=== PATIENT | female | born 1965 | race Caucasian/White ===

== ENCOUNTER → 2017-06-26 19:03 | Outpatient (CLI) | payer BC, SELFPAY ==
[2017-07-03 13:46] LABS: HPV Reflexed? NOT INDICATED
== END ==
PROVIDERS: Visit Provider Obstetrics & Gynecology
DX: Z12.4 Encounter for screening for malignant neoplasm of cervix (principal)
CPT/HCPCS: 88175; G0145

== ENCOUNTER → 2017-07-24 12:29 | Outpatient (CLI) | payer BC, SELFPAY ==
--- NOTE | 2017-07-24 12:32 | BI_ITS ---
MAMMOGRAPHY - BILATERAL SCREENING REASON FOR EXAM: Female, 51 years old. Routine annual screening examination. PERTINENT HISTORY: Non-contributory. TECHNIQUE: Digital bilateral breast darrel (3D mammographic acquisition) in the CC and MLO projections. 2-D mediolateral oblique (MLO) and craniocaudad (CC) views of both breasts were obtained. CAD: Full Field Digital Mammography with Computer Added Detection was performed. COMPARISON: Comparison is made with prior study dated April 11, 2016. FINDINGS: Breast Composition: There are scattered areas of fibroglandular density. There are no dominant masses or suspicious calcifications. Stable small benign-appearing bilateral axillary lymph nodes. No other significant abnormalities are identified. There has been no significant change since the prior study. BI/SCREENING MAMM (CAD), BILAT IMPRESSION: Stable bilateral screening mammogram. Yearly follow-up mammogram recommended. (A) ASSESSMENT CATEGORY: BIRADS Category 1: Negative. A letter regarding these results will be sent to the patient by the facility within 30 days. Approximately 10% of breast cancers are not detected by mammography. A normal mammogram should not delay biopsy of a clinically suspicious abnormality. [id number] Electronically Signed: Henry Thakkar MD at 8:47 EDT Tel [phone], Service support ,
== END ==
PROVIDERS: Visit Provider Obstetrics & Gynecology
DX: Z12.31 Encounter for screening mammogram for malignant neoplasm of breast (principal)
CPT/HCPCS: 77063; 77067

== ENCOUNTER → 2018-01-16 12:00 | Outpatient (CLI) | payer BC, SELFPAY ==
[2018-01-16 13:51] LABS: Estradiol 71.3 pg/mL; Follicle Stimulating Hormone 19.9 mIU/mL; Progesterone Level 0.43 ng/mL (See Comment)
== END ==
PROVIDERS: Referring Provider Obstetrics & Gynecology; Visit Provider Obstetrics & Gynecology
DX: R93.89 Abnormal findings on diagnostic imaging of other specified body structures (principal)
CPT/HCPCS: 36415; 82670; 83001; 84144

== ENCOUNTER 2018-02-19 05:52 | Day surgery (SDC) | payer BC, SELFPAY ==
[2018-02-17 10:48] LABS: Hematocrit 42.2 % (37-47); Hemoglobin 13.7 g/dl (12.0-15.0); Mean Corp Hgb Conc 32.5 g/gl (32-36); Mean Corpuscular Volume 92.5 fL (81-99); Mean Platelet Vol. 10.4 fl (6.2-12.0); Platelet Count 269 K/mm3 (150-450); RBC Distribution Width CV 13.1 % (11.6-14.6); RBC Distribution Width SD 43.2 fl (35.1-43.9); Red Blood Count 4.56 M/mm3 (4.2-5.4)
[2018-02-17 10:51] LABS: Scan Indicated on CBC? Y/N NO
[2018-02-17 10:54] LABS: Partial Thromboplast Time 30.1 Seconds (24.1-36.2); Prothrombin Time (Protime)PT. 12.9 SECONDS (11.7-14.9)
[2018-02-19 06:13] LABS: Internal QC Validated? YES +Cl - CLEAR BKGD; Pregnancy, Urine Negative Negative
[2018-02-19 06:28] VITALS: BP 141/91; PULSE 100; RESP 16; TEMP 37; O2SAT 98; BMI 29.2
--- NOTE | 2018-02-19 07:30 | EMB_PTH ---
PATIENT: LEIDY OWENS [place] [facility] [place][id number] AGE/SX: 52/F ROOM: RE02/19/[address]: Dr. Meghann Johnston MD : 1965 BED: DIS: 02/19/2018 SPEC #: [id number] RECD: 02/19/18 08:42 STATUS: SOPHIA LAVON #: [id number] JESSICA: 02/19/18 07:[address]: Meghann Johnston DEPT: SURGICAL PATHOLOGY RECD BY: Felice Mathias ENTERED: 02/19/18 09:22 SP TYPE: ENDOM BX/C ALEXYS DR: Out of Town Doctor Tissues: Endometrium, NOS Procedures: Surgery Specimen Level IV HEADER OPERATION: Hysteroscopy, dilation and curettage, Mirena IUD placement PRE-OP DIAGNOSIS: Irregular bleeding, thickened endometrium TISSUE SUBMITTED: Endometrial curettings MICROSCOPIC DIAGNOSIS Endometrium, curettings: Strips of benign superficial endometrium. Rare strips of benign superficial endocervix. AM:paola 02/20/18 MICROSCOPIC DESCRIPTION Slides are reviewed. GROSS DESCRIPTION Received in fixative is one container labeled with the patient's name and designated endometrial curettings. The specimen consists of multiple fragments of hemorrhagic soft tissue mixed with mucoid tissue that in aggregate measure 3 x 2.5 x 0.2 cm. The entire specimen is submitted in one cassette. / SJ:paola 02/19/18 TC:5 CPT: 08215
--- NOTE | 2018-02-19 07:50 | PCM.OPRPT ---
Report of Operation Date of Procedure: 02/19/18 Pre-Operative Diagnosis: Thickened endometrium on ultrasound and irregular menstrual cycle Post-Operative Diagnosis: Same Surgery/Procedure Performed:: D&C, diagnostic hysteroscopy, Mirena IUD placement Description of Surgical Findings:: Uterus was sounded to approximately 9-1/2-10 cm centimeters in a retroflexed position. Uterus was fully mobile. Cervix appeared to be normal. Bilateral adnexa on pelvic exam under anesthesia were noted to be benign software test analyst: Vida Varghese Type of Anesthesia:: Local, MAC Anesthesiologist: Herminio Rodrigez Special Medications: Cefotetan hand 2 g IV preoperatively, lidocaine 10 cc placed directly to the cervix Specimen's removed: Endometrium Drains: None Estimated Blood Loss (mL): Minimal Fluids Replaced: Lactated ringer Description of Procedure: Patient presented to the operating suite and n.p.o. status. Patient had been previously counseled in the office setting in regards to IUD placement following tissue removal via D&C for ongoing care of the endometrial cavity and the uterus itself. Patient was placed on the operating room table and underwent a MAC anesthetic. Once found be adequate, the patient was placed in the dorsolithotomy position with the Jose stirrups. She was prepped and draped in the normal sterile fashion. Palm straight catheter was used to empty the bladder of all remaining urine. The patient had appropriate timeouts x2. The weighted speculum was then placed in the vaginal vault area and the anterior lip of the cervix was grasped and elevated with a single-tooth tenaculum. The uterus was sounded to 9-1/2-10 cm in a retroflexed position. The cervix was then injected with 10 cc of 1% lidocaine to all 4 quadrants. The cervical os was easily dilated to accommodate a 5 mm hysteroscope into the endometrial cavity. Fluency in various areas of thickening of the endometrium were noted. The hysteroscope was removed followed by sharp curettage and collection of the endometrium. The endometrium was a sent away for pathological evaluation. At this point in time that the uterus was once again sounded to that 9-1/2-10 cm. The IUD Mirena was assembled for the length of that uterus and it was placed under the usual fashion. The string was trimmed to 2 cm. Hemostasis was noted. All instruments were removed from the vagina. Sponge and estimate counts correct x2. Patient awakened in stable condition to be taken recovery room for discharge home later today. Grafts/Implants Used: None - Complications None - Admit VTE Documentation VTE Present on Admission: No VTE Mechan Device Prophylaxis: SCD's VTE Pharm Prophylaxis ordered?: No Reason prophylaxis not ordered:: Procedure Not Indicated
--- NOTE | 2018-02-19 07:55 | OP.PCM_ITS ---
Report of Operation Date of Procedure: 02/19/18 Pre-Operative Diagnosis: Thickened endometrium on ultrasound and irregular menstrual cycle Post-Operative Diagnosis: Same Surgery/Procedure Performed:: D&C, diagnostic hysteroscopy, Mirena IUD placement Description of Surgical Findings:: Uterus was sounded to approximately 9-1/2-10 cm centimeters in a retroflexed position. Uterus was fully mobile. Cervix appeared to be normal. Bilateral adnexa on pelvic exam under anesthesia were noted to be benign supervisor display fabrication: Vida Varghese Type of Anesthesia:: Local, MAC Anesthesiologist: Herminio Rodrigez Special Medications: Cefotetan hand 2 g IV preoperatively, lidocaine 10 cc placed directly to the cervix Specimen's removed: Endometrium Drains: None Estimated Blood Loss (mL): Minimal Fluids Replaced: Lactated ringer Description of Procedure: Patient presented to the operating suite and n.p.o. status. Patient had been previously counseled in the office setting in regards to IUD placement following tissue removal via D&C for ongoing care of the endometrial cavity and the uterus itself. Patient was placed on the operating room table and underwent a MAC anesthetic. Once found be adequate, the patient was placed in the dorsolithotomy position with the Jose stirrups. She was prepped and draped in the normal sterile fashion. Palm straight catheter was used to empty the bladder of all remaining urine. The patient had appropriate timeouts x2. The weighted speculum was then placed in the vaginal vault area and the anterior lip of the cervix was grasped and elevated with a single-tooth tenaculum. The uteru s was sounded to 9-1/2-10 cm in a retroflexed position. The cervix was then injected with 10 cc of 1% lidocaine to all 4 quadrants. The cervical os was easily dilated to accommodate a 5 mm hysteroscope into the endometrial cavity. Fluency in various areas of thickening of the endometrium were noted. The hysteroscope was removed followed by sharp curettage and collection of the endometrium. The endometrium was a sent away for pathological evaluation. At this point in time that the uterus was once again sounded to that 9-1/2-10 cm. The IUD Mirena was assembled for the length of that uterus and it was placed under the usual fashion. The string was trimmed to 2 cm. Hemostasis was noted. All instruments were removed from the vagina. Sponge and estimate counts correct x2. Patient awakened in stable condition to be taken recovery room for discharge home later today. Grafts/Implants Used: None - Complications None - Admit VTE Documentation VTE Present on Admission: No VTE Mechan Device Prophylaxis: SCD's VTE Pharm Prophylaxis ordered?: No Reason prophylaxis not ordered:: Procedure Not Indicated
--- NOTE | 2018-02-19 07:55 | PCM.DC.D&C ---
Discharge Diet: No Restrictions, - - increase water to a minimum of 120 ounces daily x 3 days Discharge Activity: Return to Normal Activity, May Shower, May Take a Tub Bath - in 2 weeks., - - recommend decrease ambulation for 24 hours with leg and foot pumping during this time to assure blood flow movement of the lower extremities May shower in (days): 0 - TODAY May resume sexual activity in: 2 weeks Weight Bearing Status: Full weight bearing Lifting Restrictions: none Call your doctor if your incision/area has: Sudden Increased Bleeding Call your doctor if you observe: Fever of 101 or Higher, Inability to urinate, Inability to have a bowel movement, Using more than one pad per hour Cleanse incision/area with: Soap & Water Allergies/Adverse Reactions: Allergies oxycodone [From Percocet] Adverse Reaction (Verified 02/12/18 13:12) Vomiting Medications to take at Discharge Calcium Carbonate [Calcium] 500 mg PO DAILY 02/12/18 Cholecalciferol (Vitamin D3) [Vitamin D3] 1 tab PO DAILY 02/12/18 Ibuprofen [Ibuprofen Ib] 200 mg PO PRN PRN 02/12/18 Progesterone,Micronized [Prometrium] 200 mg PO QHS 02/12/18 Primary Care Physician: [facility] ,Out of [Primary Care Provider] - Test Results: Test results from this visit will be discussed in further detail at your follow-up appointment, if applicable. Please Follow Up With: Meghann Johnston MD When: 1-2 weeks postop
--- NOTE | 2018-02-19 07:58 | DCINST_ITS ---
Discharge Diet: No Restrictions, - - increase water to a minimum of 120 ounces daily x 3 days Discharge Activity: Return to Normal Activity, May Shower, May Take a Tub Bath - in 2 weeks., - - recommend decrease ambulation for 24 hours with leg and foot pumping during this time to assure blood flow movement of the lower extremities May shower in (days): 0 - TODAY May resume sexual activity in: 2 weeks Weight Bearing Status: Full weight bearing Lifting Restrictions: none Call your doctor if your incision/area has: Sudden Increased Bleeding Call your doctor if you observe: Fever of 101 or Higher, Inability to urinate, Inability to have a bowel movement, Using more than one pad per hour Cleanse incision/area with: Soap & Water Allergies/Adverse Reactions: Allergies oxycodone [From Percocet] Adverse Reaction (Verified 02/12/18 13:12) Vomiting Medications to take at Discharge Calcium Carbonate [Calcium] 500 mg PO DAILY 02/12/18 Cholecalciferol (Vitamin D3) [Vitamin D3] 1 tab PO DAILY 02/12/18 Ibuprofen [Ibuprofen Ib] 200 mg PO PRN PRN 02/12/18 Progesterone,Micronized [Prometrium] 200 mg PO QHS 02/12/18 Primary Care Physician: [facility] ,Out of [Primary Care Provider] - Test Results: Test results from this visit will be discussed in further detail at your follow- up appointment, if applicable. Please Follow Up With: Meghann Johnston MD When: 1-2 weeks postop
[2018-02-19 08:01] VITALS: BP 129/80; BP 141/91; PULSE 86; RESP 14; TEMP 36.1; O2SAT 95
[2018-02-19 08:05] VITALS: BP 126/79; BP 141/91; PULSE 86; RESP 16; O2SAT 95
[2018-02-19 08:10] VITALS: BP 128/80; BP 141/91; PULSE 82; RESP 16; O2SAT 95
[2018-02-19 08:16] VITALS: BP 130/83; BP 141/91; PULSE 86; RESP 16; TEMP 36.1; O2SAT 95
[2018-02-19 09:07] VITALS: BP 141/91
== END 2018-02-19 09:07 | disposition home or self-care (01) ==
LOC: SDC 05:53 → AC 05:57
PROVIDERS: Referring Provider Obstetrics & Gynecology; Visit Provider Obstetrics & Gynecology
PROC: 0UDB8ZZ Extraction of Endometrium, Via Natural or Artificial Opening Endoscopic (ICD-10-PCS; CPT 58558; principal; 2018-02-19 07:20)
DX: N92.6 Irregular menstruation, unspecified (principal); R93.89 Abnormal findings on diagnostic imaging of other specified body structures; Z78.0 Asymptomatic menopausal state
CPT/HCPCS: 58300; 58558; 36415; 81025; 85027; 85610; 85730; 86850; 86900; 88305; J7120; J2405

== ENCOUNTER → 2018-07-09 11:50 | Outpatient (CLI) | payer BC, SELFPAY ==
[2018-07-11 13:28] LABS: HPV Reflexed? NOT INDICATED
== END ==
PROVIDERS: Visit Provider Obstetrics & Gynecology
DX: Z12.4 Encounter for screening for malignant neoplasm of cervix (principal)
CPT/HCPCS: 88175; G0145

== ENCOUNTER → 2018-08-04 12:05 | Outpatient (CLI) | payer BC, SELFPAY ==
--- NOTE | 2018-08-04 12:08 | BI_ITS ---
MAMMOGRAPHY - BILATERAL SCREENING REASON FOR EXAM: Female, 52 years old. Routine annual screening examination. PERTINENT HISTORY: Non-contributory. TECHNIQUE: Digital bilateral breast darrel (3D mammographic acquisition) in the CC and MLO projections. 2-D mediolateral oblique (MLO) and craniocaudad (CC) views of both breasts were obtained. CAD: Full Field Digital Mammography with Computer Added Detection was performed. COMPARISON: Comparison is made with prior study dated July 24, 2017 and April 11, 2016 FINDINGS: Breast Composition: There are scattered areas of fibroglandular density. There are no dominant masses or suspicious calcifications. Stable small bilateral benign-appearing axillary lymph nodes. No other significant abnormalities are identified. There has been no significant change since the prior study. BI/SCREENING MAMM (CAD), BILAT IMPRESSION: Stable bilateral screening mammogram. Yearly follow-up mammogram recommended. (A) ASSESSMENT CATEGORY: BIRADS Category 2: Benign. A letter regarding these results will be sent to the patient by the facility within 30 days. Approximately 10% of breast cancers are not detected by mammography. A normal mammogram should not delay biopsy of a clinically suspicious abnormality. [id number] Electronically Signed: Henry Thakkar, at 14:20 EDT , Service support ,
== END ==
PROVIDERS: Referring Provider Obstetrics & Gynecology; Visit Provider Obstetrics & Gynecology
DX: Z12.31 Encounter for screening mammogram for malignant neoplasm of breast (principal)
CPT/HCPCS: 77063; 77067

== ENCOUNTER → 2018-08-21 | Outpatient (CLI) | payer BC, SELFPAY ==
[2018-08-21 16:07] LABS: Estradiol < 11.0 pg/mL; Follicle Stimulating Hormone 78.7 mIU/mL
[2018-08-21 16:12] LABS: Progesterone Level 16.69 ng/mL (See Comment)
== END | disposition home or self-care (01) ==
LOC: WOBLAB 13:45
PROVIDERS: Visit Provider Obstetrics & Gynecology
DX: N92.6 Irregular menstruation, unspecified (principal)
CPT/HCPCS: 36415; 82670; 83001; 84144

== ENCOUNTER 2018-11-10 08:35 | Day surgery (SDC) | payer BC, SELFPAY ==
--- NOTE | 2018-11-05 11:34 | EKG12_ITS ---
Test Reason : PREOP Blood Pressure : / mmHG Vent. Rate : 067 BPM Atrial Rate : 067 BPM P-R Int : 134 ms QRS Dur : 082 ms QT Int : 416 ms P-R-T Axes : 041 009 013 degrees QTc Int : 439 ms Normal sinus rhythm Normal ECG No previous ECGs available Confirmed by PEDRO RIVERA, KIRBY ([id number]), sound editor STEPHANIE SHERWOOD ([id number]) on 11/10/2018 1:31:29 PM Referred By: Jeremy Oro Confirmed By:KIRBY VASQUEZ MD
[2018-11-05 12:17] LABS: Hematocrit 43.1 % (37-47); Hemoglobin 13.8 g/dL (12.0-15.0); Mean Corpuscular Hgb 29.6 pg (27.0-32.0); Mean Corpuscular Volume 92.3 fL (81-99); Mean Platelet Vol. 10.1 fl (6.2-12.0); Platelet Count 289 K/mm3 (150-450); RBC Distribution Width CV 13.4 % (11.6-14.6); RBC Distribution Width SD 45.4 fl (35.1-43.9); Red Blood Count 4.67 M/mm3 (4.2-5.4); White Blood Count 9.4 K/mm3 (4.4-11.0)
[2018-11-05 12:44] LABS: Prothrombin Time (Protime)PT. 12.9 SECONDS (11.7-14.9)
[2018-11-05 12:45] LABS: Partial Thromboplast Time 31.7 Seconds (24.1-36.2)
[2018-11-05 12:47] LABS: Anion Gap 5 (5-15); BUN 16 mg/dL (7-18); BUN/Creat Ratio 17.2 RATIO (10-20); Chloride 108 mmol/L (98-107); Creatinine, Serum 0.93 mg/dL (0.55-1.02); EST Glomerular Filtration Rate 67 mL/min (>60); Est Glom Filt Rate - Afr Amer 81 mL/min (>60); Glucose 94 mg/dL (74-106); Potassium 3.9 mmol/L (3.5-5.1); Sodium Level 139 mmol/L (136-145)
--- NOTE | 2018-11-08 20:09 | PCM.HP.BLA ---
History and Physical Date of Admission: 11/10/18 Surgical History and Physical Khloe Vela, a 52 year old female 2 0 1 0 2, presents for RAVH/BSO on November 10, 2018 at 10:40. -- Persistent Vaginal Bleding; Submucous/intramural fibroids -- Pt had D and C, hysterscopy and IUD placed 18. Pt is still bleeding, tender and cramping. Medications and allergies are up to date. AM PT is a 52 yo female, G-3 P-2 here today for her annual> PT LMP was approx 04/01/2018. States she had bleeding whole month then irregular variable menses with intermittent irregular spotting through the month. Recent ultrasound shows UTERUS: 7.8 x 5.5 x 5 cm and is retroverted. There is a 2.4 x 1.8 x 2.3 cm fibroid in the left uterine body that is directly adjacent to the endometrium. 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 MEDICATIONS HISTORY: Current medications prescribed by our practice are: 1. Prometrium 200 mg capsule, po qhs ALLERGIES: Percocet, Intolerance-unknown Infections - Chicken pox and Measles Illnesses - no serious past illnesses Accidents - no injuries of consequence Hospitalizations - Childbirth and see surgery arthritis, HTN; Review of Systems: GENERAL - Denies fever, or chills SKIN - Denies skin changes EYES - Denies visual changes EARS - Denies difficulty hearing NOSE - Denies nasal congestion or bleeding MOUTH - Denies sore throat or difficulty swallowing NECK - Denies pain or swelling RESPIRATORY - Denies shortness of breath or wheezing CARDIOVASCULAR - Denies palpitations or chest pain GASTROINTESTINAL - Denies nausea, vomiting, diarrhea, constipation GENITOURINARY - Denies dysuria, frequency of urination, incontinence of urine MUSCULOSKELETAL - Denies joint or muscle pain NEUROLOGICAL - Denies localized numbness or weakness PSYCHIATRIC - Denies depression or anxiety ENDOCRINE - Denies heat or cold intolerance, weight loss or gain HEMATO-IMMUNOLOGIC - Denies excessive bleeding with cuts SOCIAL HISTORY: Alcohol Use - denies drinking Smoking - denies smoking Diet - balanced Diet Lifestyle - low stress lifestyle Exercise - regular Seat Belt Use - always Employer - homemaker Illicit Drug Use - denies use of street drugs Sexual Activity - Spouse-Sig Other Name - Jama Spouse-Sig Other Occupation - [employer] Spouse-Sig Other Phone No - [phone] Children Name(s) - Freida Hayes Control - Prior Tubal FAMILY HISTORY: MENSTRUAL HISTORY: LMP Known?- DefiniteAmount/Duration - variable, Regularity - Irregular, Frequency - variable days, LMP - 07/21/18 PAST PREGNANCIES: Total Pregnancies - 3; Full Term Pregnancies - 2; Premature - 0; Abortions, Induced - 1; Abortions, Spontaneous - 0; Ectopics - 0; Multiple Births - 0; Living Children - 2 SURGICAL HISTORY: 1. 02/19/2018 hysteroscopy, D and C, Mirena IUD placement ; Meghann Johnston MD 2. 01/25/1989 ; - [facility] 3. cholecystectomy, 1995 4. right shoulder surgery, 2012 5. kidney removal (3 kidneys at ) 1968 6. Tubal, 1994 7. D and C, 1980 8. 04/26/2016 hysteroscopy, D and C ; Meghann Johnston MD PHYSICAL EXAM BP- 130/90 Sitting, Right arm, regular cuff Temp- 98.1 Taken Orally Weight- 182.34239 lbs Height- 66.00 inch BMI:29.57 CONSTITUTIONAL - NAD, well nourished, and well developed SKIN - No rash, lesions, or ulcers HEENT - Normocephalic, PERRLA, EOMI NECK - No nodes, no nuchal rigidity and thyroid normal size and texture LYMPH NODES - Palpation of lymph nodes in neck and groins within normal limits LUNGS - CTA x2 without wheezes, crackles or rales CARDIAC - Regular rate and rhythm without rubs, murmurs, or gallops BREAST - No dominant masses, no tenderness, no axillary adenopathy, no nipple discharge, no skin changes ABDOMEN - Without hepatosplenomegaly, distention, masses, rebound, or guarding; normal bowel sounds; no hernias EXTREMITIES - No edema or calf tenderness NEUROLOGICAL - Cranial nerves II-XII grossly intact PSYCHIATRIC - A and O to time, place, person, mood and affect External Genital Vagina - non-tender without lesions Urethra/Urethral Meatus - non-tender Bladder - non-tender Vagina - vaginal jackson are pink and moist without loss of rugae and no evidence of atropy Cervix - without cervical motion tenderness and has normal size and features without evident lesions Uterus - 5-6 cm in size, mobile and nontender Adnexa - clear without masses or tenderness ASSESSMENT/PLAN: Fibroids, Persistent Vaginal Bleeding after D and C Discussed options for treatment and pt desires we proceed with definitive treatment. Plan RAVH/BSO. Discussed RBAs and all questions answered.
[2018-11-10] VITALS (11 sets, daily range): BP systolic 110–149; BP diastolic 69–93; PULSE 69–89; RESP 14–18; TEMP 36.2–37.2; O2SAT 93–100; BMI 29.6
[2018-11-10] MEDS: Lactated Ringers 1,000 ML 75 ML IV ×3 (09:24→13:30)
--- NOTE | 2018-11-10 10:25 | HYST_PTH ---
PATIENT: LEIDY OWENS LOC: [facility] – [place] U#:[id number] AGE/SX: 53/F ROOM: RE11/10/[address]: Dr. Jeremy Oro MD : 1965 BED: DIS: 11/11/2018 SPEC #: [id number] RECD: 11/10/18 16:01 STATUS: SOPHIA LAVON #: [id number] JESSICA: 11/10/18 10:[address]: Jeremy Oro DEPT: SURGICAL PATHOLOGY RECD BY: Felice Mathias Tissues: Uterus, NOS Procedures: Surgery Specimen Level V HEADER OPERATION: Robotic assisted vaginal hysterectomy bilateral salpingo-oop PRE-OP DIAGNOSIS: Fibroids, persistent vaginal bleeding after D and C TISSUE SUBMITTED: Uterus, cervix, bilateral fallopian tubes, and bilateral ovaries MICROSCOPIC DIAGNOSIS Uterus, cervix, bilateral fallopian tubes and bilateral ovaries: Cervix - chronic cystic cervicitis and squamous metaplasia. Endometrium - exogenous hormone effects. Myometrium - intramural and submucosal leiomyomas (2 cm in greatest dimension). Bilateral fallopian tubes -no pathologic diagnosis. Bilateral ovaries - no pathologic diagnosis. Right paratubular cyst. VIVIANE:catalina 11/12/18 MICROSCOPIC DESCRIPTION Slides are reviewed. GROSS DESCRIPTION Received in fixative is one container labeled with the patient's name and designated uterus, cervix, bilateral fallopian tubes, bilateral ovaries. The specimen consists of a hysterectomy specimen consisting of uterus with cervix and attached bilateral fallopian tube and ovary. The uterus with cervix weighs 117 gm and measures 10 x 6 x 5.5 cm. The serosal surface is shoemaker glistening. The ectocervical mucosa is unremarkable. The external os is circular in contour. The endocervical canal measures 3.5 cm in length and the endocervical mucosa is shoemaker glistening and unremarkable. Sections of the cervix reveal a few cysts filled with mucoid material. The triangular endometrial cavity measures 5 cm in length and up to 3 cm in width. The endometrium is shoemaker, glistening, without any mass lesion and measures 0.2 cm in thickness. Sections of the uterine wall revealed multiple nodular masses. The largest mass measured 2 cm in greatest dimension. The masses are in submucosal and intramural in location. Sections of these masses reveal shoemaker whorled cut surfaces without areas of hemorrhage, necrosis or cystic degeneration. The uninvolved uterine wall measures up to 3 cm in thickness. The right fallopian tube measures 2 cm in length and 0.5 cm in diameter. The fimbrial end is identified. A paratubal cyst is also noted measuring 1 cm in greatest dimension. The proximal portion of the fallopian tube appears to be absent consistent with previous tubal ligation. The right ovary measures 2 x 1 x 1 cm. Sections reveal a few hemorrhagic cysts and the largest cyst measures 0.5 cm in greatest dimension. The left fallopian tube is similar in appearance to the right and measures 1 cm in length. Fimbrial end is identified. The proximal portion of the right fallopian tube is absent. The left ovary measures 2.5 x 1.5 x 1 cm. Sections reveal a cyst with a small amount of hemorrhagic material measuring 1 cm in greatest dimension. Process Validation Engineer sections are submitted in 10 cassettes as follows: 1 -anterior cervix, 2 - posterior cervix, 3 & 4 - anterior uterine wall, 5 & 6 - posterior uterine wall, 7 - smaller nodular mass, 8 - largest nodular mass, 9 - right fallopian tube and ovary and paratubal cyst, 10 - left fallopian tube and ovary (left fallopian tube is entirely submitted). /VIVIANE:catalina 11/11/18 TC: 1 CPT: 28520
[2018-11-10] MEDS: Ropivacaine 0.5% 30 ML Vial (12:25)
--- NOTE | 2018-11-10 13:50 | OP.PCM_ITS ---
Report of Operation Date of Procedure: 11/10/18 Pre-Operative Diagnosis: Menorrhagia and Fibroids Post-Operative Diagnosis: Menorrhagia and Fibroids Surgery/Procedure Performed:: Robotic Assisted Vaginal Hysterectomy and Bilateral Salpingo-Oophorectomy Description of Surgical Findings:: 10 cm uterus with normal-appearing fallopian tubes and ovaries cloth mercerizer operator: Luis Steiner Type of Anesthesia:: General - Endotracheal Anesthesiologist: Raya Denise Specimen's removed: Uterus and bilateral fallopian tubes and ovaries, Mirena IUD Drains: Palm to straight drain Estimated Blood Loss (mL): Minimal Fluids Replaced: Crystalloid Description of Procedure: Surgeon: Jeremy Oro MD, FACOG Indication: This is a 53 year old patient who has been having problems with garage and fibroids. Conservative measures including a Mirena IUD have not been helpful. The patient has been counseled regarding the risks, benefits and alternatives of this procedure including the possibility of bleeding, infection, and injury to surrounding structures such as bowel bladder and all questions were answered. She understands that if BSO is needed that she may need to be on HRT for an indefinite period of time. Procedure: Pt taken to the operating room where, after induction of general anesthesia, the patient was prepped and draped in the usual sterile fashion and placed on a non-slip Huggy-u-vac device. Trendelenburg test was satisfactory. Bladder was drained of urine with a Palm catheter which was left in place. Anterior cervix grasped and cervix was dilated to about 3-4 mm. Uterus sounded to 10 cms. 0-Vicryl suture was placed at the 3:00 and 9:00 position of the cervix. A small [employer] Uterine Manipulator was then placed in the uterus and attention was turned to the laparoscopic portion of the procedure. Ropivocaine 0.5% was injected approximately 2-3 cm superior to the umbilicus and an 8 mm robotic camera port was introduced directly with intraperitoneal placement confirmed with CO2 insufflation. 8 mm robotic side ports were introduced under direct visualization approximately 11 cm lateral and 2 cm inferior to the umbilical port. A 5 mm left upper quadrant port was introduced and airseal insufflation with CO2 was started. The above findings were noted. Robot was docked without difficulty and attention turned to the robotic portion of the procedure. Approximately 30 cc of Ropivicaine was used. Bilateral infundibulopelvic ligaments and mesosalpinx were ligated with 35 craft bipolar coagulation to the level of the round ligament. The posterior aspect of the cervix was identified and then opened for about 1 cm using 25 watt monopolar cautery. Bladder flap was opened and divided to the level of the round ligaments using monopolar cautery. Progressive bites were then ligated on each side of the cervix with 35 craft bipolar cautery to the uterine arteries. The anterior vaginal mucosa was entered and cervix circumscribed with monopolar cautery. Uterus and attached tubes and ovaries were removed through the vagina. Vaginal cuff was closed first with 0-Vicryl Tracey stitches placed at each angle followed by closure of the mid-cuff with 0-Monocryl V-lock suture in two layers. Pelvis was copiously irrigated with saline and the right and left ureters were noted to peristalse. Robot was undocked and trocars were removed with as much gas as possible. Incisions were closed with 4-0 Monocryl subcuticular sutures and incisions covered with steri-strips. The patient tolerated the procedure well and was taken to the recovery room in satisfactory condition. Sponge, instruments and needle counts were all correct. There were no apparent complications of the surgery. Cefotan 2 gms IV was given prior to the procedure. Estimated Blood Loss: Minimal Specimen to Pathology: Uterus and bilateral fallopian tubes and ovaries Grafts/Implants Used: None - Complications None - Admit VTE Documentation VTE Present on Admission: Yes VTE Mechan Device Prophylaxis: SCD's VTE Pharm Prophylaxis ordered?: Yes
--- NOTE | 2018-11-10 13:56 | DCINST_ITS ---
Discharge Diet: No Restrictions Discharge Activity: Return to Normal Activity, May Not Drive - while taking narcotic pain medications., May Shower May resume sexual activity in: 6-8 weeks Call your doctor if your incision/area has: Continuous Slow Oozing, Sudden Increased Bleeding, Increased Pain/ Swelling, Increased Redness, Foul Smelling Discharge Call your doctor if you observe: Fever of 101 or Higher, Inability to urinate, Inability to have a bowel movement, Using more than one pad per hour Allergies/Adverse Reactions: Allergies oxycodone [From Percocet] Adverse Reaction (Verified 11/10/18 08:55) Vomiting Medications to take at Discharge Ibuprofen [Ibuprofen Ib] 200 mg PO PRN PRN 02/12/18 Methyl Salicylate/Menthol [Icy Hot Cream] 35.4 gm TP QHS 11/03/18 Docusate Sodium [Colace] 100 mg PO BID PRN PRN #60 cap 11/10/18 Hydrocodone/Acetaminophen [[place] 5-325 Tablet] 1 ea PO Q6H PRN PRN 7 Days #20 tab 11/10/18 The following prescriptions were given: Docusate Sodium [Colace] 100 mg PO BID PRN PRN #60 cap PRN Reason: Constipation Prescription Printed Hydrocodone/Acetaminophen [[place] 5-325 Tablet] 1 ea PO Q6H PRN PRN 7 Days #20 tab PRN Reason: Severe Pain (6-12/25) Prescription Printed Primary Care Physician: TAYLOR JUÁREZ [Other] Test Results: Test results from this visit will be discussed in further detail at your follow- up appointment, if applicable. Please Follow Up With: Jeremy Oro MD When: 2 to 3 weeks
[2018-11-10] MEDS: HYDROmorphone 1 MG/ML Syringe IV (15:54)
[2018-11-10] MEDS: Dextrose 5%-Lactated Ringers 1,000 ML 150 ML IV ×2 (15:54→23:16)
[2018-11-10] MEDS: Ondansetron 4 MG/2 ML Vial IV (15:54)
[2018-11-10] MEDS: Enoxaparin 30 MG/0.3 ML Syringe SC (18:10)
[2018-11-10] MEDS: proMETHazine 25 MG/ML Syringe 12.5 MG IV ×2 (18:33→23:16)
[2018-11-10] MEDS: Ketorolac 30 MG/ML Syringe IV (19:46)
[2018-11-10] MEDS: HYDROcodone Bitartrate/Apap 5/325 Tablet PO (21:29)
[2018-11-11 02:17] VITALS: BP 132/67; PULSE 65; RESP 18; TEMP 36.5; O2SAT 95
[2018-11-11] MEDS: proMETHazine 25 MG/ML Syringe 12.5 MG IV (02:22)
[2018-11-11] MEDS: Ketorolac 30 MG/ML Syringe IV ×2 (02:27→08:25)
[2018-11-11] MEDS: Dextrose 5%-Lactated Ringers 1,000 ML 150 ML IV (05:59)
--- NOTE | 2018-11-11 06:50 | PCM.PN.OB ---
Subjective: Patient without complaints. Tolerating diet well. Denies flatus. Minimal vaginal bleeding. Nausea better. - Physical Exam Vital Signs Temp Pulse Resp BP Pulse Ox 97.7 F L 65 18 132/67 H 95 11/11/18 02:17 11/11/18 02:17 11/11/18 02:17 11/11/18 02:17 11/11/18 02:17 Oxygen Delivery Method Room Air Weight: 183 lb 10.321 oz Body Mass Index (BMI) 29.6 Intake and Output for Last 24 Hours 11/09/18 11/10/18 11/11/18 23:59 23:59 23:59 Intake Total 3296.25 / 3296.25 1000 / 1000 Output Total 1700 / 1700 1400 / 1400 Balance 1596.25 / 1596.25 -400 / -400 Laboratory Tests Past 24 Hrs 11/11/18 11/11/18 06:18 06:18 WBC Pending RBC Pending Hgb Pending Hct Pending MCV Pending MCH Pending MCHC Pending RDW Std Deviation Pending RDW Coeff of Shelley Pending Plt Count Pending Creatinine Pending Est GFR (MDRD) Af Amer Pending Est GFR (MDRD) Non-Af Pending Wounds are clean, dry, intact. Good urine output. Hemoglobin and creatinine pending. Medical Necessity - Tobacco Use Smoking Status: Never smoker Assessment/Plan All Active Problems Endometrial thickening on ultra sound (Acute) Doing well postoperative day #1 status post robotic assisted vaginal hysterectomy and bilateral salpingo-oophorectomy. Will discharge to home later today if able to void on own and hemoglobin is stable.
[2018-11-11 06:54] LABS: Hematocrit 40.8 % (37-47); Hemoglobin 12.9 g/dL (12.0-15.0); Mean Corp Hgb Conc 31.6 g/dL (32-36); Mean Corpuscular Hgb 28.9 pg (27.0-32.0); Mean Corpuscular Volume 91.3 fL (81-99); Mean Platelet Vol. 9.7 fl (6.2-12.0); Platelet Count 271 K/mm3 (150-450); RBC Distribution Width CV 13.2 % (11.6-14.6); RBC Distribution Width SD 44.2 fl (35.1-43.9); Red Blood Count 4.47 M/mm3 (4.2-5.4); White Blood Count 21.9 K/mm3 (4.4-11.0)
[2018-11-11 07:00] LABS: Creatinine, Serum 1.08 mg/dL (0.55-1.02); EST Glomerular Filtration Rate 56 mL/min (>60); Est Glom Filt Rate - Afr Amer 68 mL/min (>60); Estimated Creatinine Clearance 55.75 ml/min
[2018-11-11 08:17] VITALS: BP 155/87; PULSE 80; RESP 18; TEMP 37.2; O2SAT 99
[2018-11-11 09:24] VITALS: O2SAT 97
[2018-11-11 10:40] VITALS: BP 155/87; PULSE 80; RESP 18; TEMP 37.2; O2SAT 99
== END 2018-11-11 10:34 | disposition home or self-care (01) ==
LOC: SDC 08:41 → AC 08:41 → MS3 12:11
PROVIDERS: Referring Provider Obstetrics & Gynecology; Visit Provider Obstetrics & Gynecology
PROC: 0UT90ZZ Resection of Uterus, Open Approach (ICD-10-PCS; CPT 58571; principal; 2018-11-10 10:25)
DX: N92.0 Excessive and frequent menstruation with regular cycle (principal); N72 Inflammatory disease of cervix uteri; D25.9 Leiomyoma of uterus, unspecified; N83.8 Other noninflammatory disorders of ovary, fallopian tube and broad ligament; I10 Essential (primary) hypertension; R93.89 Abnormal findings on diagnostic imaging of other specified body structures; Z88.5 Allergy status to narcotic agent; Z90.49 Acquired absence of other specified parts of digestive tract; K21.9 Gastro-esophageal reflux disease without esophagitis
CPT/HCPCS: 00840; 58571; 36415; 80048; 82565; 85027; 85610; 85730; 86850; 86900; 86901; 88307; 93005; J7120; J2405